=== PATIENT | female | born 1940 | race Caucasian/White ===

== ENCOUNTER → 2016-12-25 | Outpatient (CLI) | payer MEDICARE ==
[2016-12-25 14:19] VITALS: BP 134/86; PULSE 92; RESP 16; TEMP 98; BMI 52.0
--- NOTE | 2016-12-25 16:26 | P.HPBAR ---
Bariatric H&P - History & Physicial H&P Date: 12/25/16 History & Physicial: Visit/CC: band Patient initial contact: Initial weight: 167.829 kg Initial weight in pounds: 370.00 Height: 5 ft 1 in Initial BMI: 69.9 Last weight: Current weight: 124.738 kg Current weight in pounds: 275.00 Current BMI: 52.0 [place] body weight (based on NIH guidelines): 47.627 kg Excess body weight loss: 35.8% The patient is a 76 year-old F who presents for Bariatric Assessment. The patient is requesting to convert to sleeve yesterday. She has had chronic issues with dysphagia. She's had a LAP-BAND for over 10 years and has had trouble adjusting her band secondary to reflux and dysphagia. Her current BMI is 52. Past Medical History Past Medical History: Hypertension, Osteoarthritis (OA) History of Any Multi-Drug Resistant Organisms: None Reported Past Surgical History: Appendectomy, Bariatric Surgery, Cholecystectomy, Orthopedic Surgery, Tonsillectomy Additional Past Surgical History / Comment(s): 2004 gastric band bilateral hip replacement bilateral knee replacemnt Past Anesthesia/Blood Transfusion Reactions: Postoperative Nausea & Vomiting ( PONV) Past Psychological History: No Psychological Hx Reported Smoking Status: Never smoker Past Alcohol Use History: None Reported Past Drug Use History: None Reported Surgical - Exam Vital Signs Temp Pulse Resp BP 98.0 F 92 16 134/86 12/25/16 14:17 12/25/16 14:17 12/25/16 14:17 12/25/16 14:17 - General well developed, no distress - Eyes PERRL - ENT normal pinna - Neck no masses - Respiratory normal expansion - Cardiovascular Rhythm: regular - Abdomen Abdomen: soft, non tender Bariatric Assessment & Plan Plan: Morbid obesity with BMI 52. I had lengthy discussion with the patient regarding sleeve gastrectomy. I went over the risks and benefits of procedure. The patient will like to convert to sleeve this certainly due to chronic issues with GERD and dysphagia. She is unable to have her LAP-BAND adjusted further due to dysphagia. We will attempt to obtain insurance authorization. Bariatric Checklist Checklist: Plan: Checklist: EGD: 1. Hiatal hernia: 2. H. Pylori: HgbA1c: Vitamin D: Smoking: Never smoker Primary care physician referral: Psychiatry clearance: Cardiology clearance: Sleep study: Diet journal: VTE risk score: VTE risk level: Rehab needs at discharge:
== END | disposition home or self-care (01) ==
LOC: BARWHC3 13:46
PROVIDERS: ATTEND Surgery
DX: Z01.818 Encounter for other preprocedural examination (principal); E66.01 Morbid (severe) obesity due to excess calories; Z98.84 Bariatric surgery status; R13.10 Dysphagia, unspecified; K21.9 Gastro-esophageal reflux disease without esophagitis; Z68.43 Body mass index [BMI] 50.0-59.9, adult
CPT/HCPCS: 99211

== ENCOUNTER 2017-01-12 10:26 | Day surgery (SDC) | payer MEDICARE ==
[2017-01-10 11:54] VITALS: BMI 50.3
[~2017-01-12 10:26] MED LIST: LACTATED RINGERS 1,000 ML IV SCH
[2017-01-12 11:10] VITALS: TEMP 97.4
[2017-01-12] MEDS ORDERED: GLYCOPYRROLATE 0.2 MG/ML 2 ML VIAL ONE (11:41)
[2017-01-12] MEDS ORDERED: PROPOFOL 10 MG/ML 20 ML VIAL IV ONE (11:41)
[2017-01-12] MEDS ORDERED: LIDOCAINE 1% INJ 10MG/ML (20 ML MDV) ONE (11:41)
--- NOTE | 2017-01-12 11:43 | P.GSHP ---
History of Present Illness H&P Date: 01/12/17 Chief Complaint: GERD, dysphagia This a 76-year-old female who presents today for EGD. She's had issues with chronic GERD and dysphagia. Patient history of LAP-BAND surgery. - Constitutional Constitutional: Reports as per HPI Past Medical History Past Medical History: Hypertension, Osteoarthritis (OA), Sleep Apnea/CPAP/BIPAP Additional Past Medical History / Comment(s): LYMPH EDEMA BLE History of Any Multi-Drug Resistant Organisms: None Reported Past Surgical History: Appendectomy, Bariatric Surgery, Breast Surgery, Cholecystectomy, Joint Replacement, Tonsillectomy Additional Past Surgical History / Comment(s): 2004 gastric band, bilateral hip replacement, bilateral knee replacemnt, BREAST REDUCTION, CATARACTS BILAT EYES Past Anesthesia/Blood Transfusion Reactions: Postoperative Nausea & Vomiting ( PONV) Past Psychological History: No Psychological Hx Reported Smoking Status: Never smoker Past Alcohol Use History: None Reported Past Drug Use History: None Reported - Past Family History Mother Family Medical History: Cancer Medications and Allergies Home Medications Medication Instructions Recorded Confirmed Type Allopurinol [Zyloprim] 100 mg PO Q3D 12/22/16 01/12/17 History Sulindac [Clinoril] 200 mg PO BID 12/22/16 01/12/17 History Valsartan/Hydrochlorothiazide 1 tab PO DAILY 12/22/16 01/12/17 History [Valsartan-Hctz 160-25 mg Tab] Allergies Allergy/AdvReac Type Severity Reaction Status Date / Time No Known Allergies Allergy Verified 01/12/17 11:00 Surgical - Exam Vital Signs Temp Pulse Resp BP Pulse Ox 97.4 F L 77 18 128/69 97 01/12/17 11:08 01/12/17 11:08 01/12/17 11:08 01/12/17 11:08 01/12/17 11:08 - General well developed, no distress - Eyes PERRL - ENT normal pinna - Neck no masses - Respiratory normal expansion - Cardiovascular Rhythm: regular - Abdomen Abdomen: soft, non tender Assessment and Plan Plan: GERD, dysphagia. Morbid obesity BMI 51 area patient will undergo EGD today.
--- NOTE | 2017-01-12 11:52 | P.OP ---
Date of Procedure: 01/12/17 Preoperative Diagnosis: GERD Postoperative Diagnosis: Antral gastritis Mild esophagitis LAP-BAND without evidence of inflammation or erosion. Procedure(s) Performed: EGD Implants: Anesthesia: MAC Surgeon: Guy Sterling Pathology: other (Antrum, esophagus) Condition: stable Disposition: PACU Indications for Procedure: Operative Findings: Description of Procedure: The patient's placed on the endoscopy table in the lateral position. She received IV sedation. The gastroscope some placed oropharynx and passed into the esophagus and into the stomach. Scope was then placed through the pylorus. The first and second portion duodenum appeared normal. Scope was then brought back the antrum and this was mildly inflamed. A biopsies was performed. Scope was unretroflexed and the meters stomach appeared normal. The LAP-BAND was without evidence of inflammation or erosion. The proximal gastric pouch appeared slightly enlarged. The GE junction was at 40 cm. The distal esophagus appeared mildly inflamed a biopsies performed. The proximal esophagus appeared normal. Scope was withdrawn for patient.
[2017-01-12 12:00] VITALS: BP 124/66; PULSE 86; RESP 20
== END 2017-01-12 12:27 | disposition home or self-care (01) ==
LOC: ORWHC2ENDO 10:26
PROVIDERS: ATTEND Surgery
DX: K29.50 Unspecified chronic gastritis without bleeding (principal); K20.9 Esophagitis, unspecified; Z98.84 Bariatric surgery status; E66.01 Morbid (severe) obesity due to excess calories; Z68.43 Body mass index [BMI] 50.0-59.9, adult; I10 Essential (primary) hypertension; M19.90 Unspecified osteoarthritis, unspecified site; G47.33 Obstructive sleep apnea (adult) (pediatric); Z99.89 Dependence on other enabling machines and devices
CPT/HCPCS: 88305; 88342; 43239; J2001; J2704

== ENCOUNTER → 2017-01-22 | Outpatient (CLI) | payer MEDICARE ==
[2017-01-22 13:49] VITALS: BP 144/74; PULSE 85; RESP 16; TEMP 97.9; BMI 51.6
--- NOTE | 2017-01-22 13:59 | P.HPBAR ---
Bariatric H&P - History & Physicial H&P Date: 01/22/17 History & Physicial: Visit/CC: band Patient initial contact: Initial weight: 167.829 kg Initial weight in pounds: 370.00 Height: 5 ft 1 in Initial BMI: 69.9 Last weight: Current weight: 123.944 kg Current weight in pounds: 273.00 Current BMI: 51.6 [place] body weight (based on NIH guidelines): 47.627 kg Excess body weight loss: 36.6% The patient is a 76 year-old F who presents for Bariatric Assessment. Patient presents today for sleeve gastrectomy pre-consultation. Patient underwent recent EGD with is found have some mild gastritis. Patient has had chronic issues dysphagia and GERD with her LAP-BAND. She is still morbidly obese with a BMI of 52. We will over the risks and benefits of the sleeve gastrectomy again. Past Medical History Past Medical History: Hypertension, Osteoarthritis (OA), Sleep Apnea/CPAP/BIPAP History of Any Multi-Drug Resistant Organisms: None Reported Past Surgical History: Appendectomy, Bariatric Surgery, Breast Surgery, Cholecystectomy, Joint Replacement, Tonsillectomy Additional Past Surgical History / Comment(s): 2004 gastric band, bilateral hip replacement, bilateral knee replacemnt, BREAST REDUCTION, CATARACTS BILAT EYES Past Anesthesia/Blood Transfusion Reactions: Postoperative Nausea & Vomiting ( PONV) Past Psychological History: No Psychological Hx Reported Smoking Status: Never smoker Past Alcohol Use History: None Reported Past Drug Use History: None Reported Surgical - Exam Vital Signs Temp Pulse Resp BP 97.9 F 85 16 144/74 01/22/17 13:47 01/22/17 13:47 01/22/17 13:47 01/22/17 13:47 - General well developed, no distress - Eyes PERRL - ENT normal pinna - Neck no masses - Respiratory normal expansion - Cardiovascular Rhythm: regular - Abdomen Abdomen: soft, non tender Bariatric Assessment & Plan Plan: Morbid obesity with BMI 52 Dysphagia GERD. Osteoarthritis The patient will be scheduled for sleeve gastric which he receives authorization. Bariatric Checklist Checklist: Plan: Checklist: EGD: 1. Hiatal hernia: 2. H. Pylori: HgbA1c: Vitamin D: Smoking: Never smoker Primary care physician referral: Psychiatry clearance: Cardiology clearance: Sleep study: Diet journal: VTE risk score: VTE risk level: Rehab needs at discharge:
== END ==
LOC: BARWHC3 13:07
PROVIDERS: ATTEND Surgery
DX: Z48.815 Encounter for surgical aftercare following surgery on the digestive system (principal); M81.0 Age-related osteoporosis without current pathological fracture; K21.9 Gastro-esophageal reflux disease without esophagitis; Z98.84 Bariatric surgery status
CPT/HCPCS: 99211

== ENCOUNTER → 2017-02-26 | Outpatient (CLI) | payer MEDICARE ==
[2017-02-26 13:56] VITALS: BP 146/81; PULSE 86; TEMP 98.2; BMI 51.3
--- NOTE | 2017-02-26 16:22 | P.HPBAR ---
Bariatric H&P - History & Physicial H&P Date: 02/26/17 History & Physicial: Visit/CC: presurgical visit Patient initial contact: Initial weight: 167.829 kg Initial weight in pounds: 370.00 Height: 5 ft 1 in Initial BMI: 69.9 Last weight: 273 Current weight: 123.241 kg Current weight in pounds: 271.70 Current BMI: 51.3 [place] body weight (based on NIH guidelines): 47.627 kg Excess body weight loss: 37.0% The patient is a 76 year-old F who presents for Bariatric Assessment. The patient has some mild colitis of GERD. The patient is requesting convert to sleeve gastrectomy. We were unable to adjust her band due to chronic issues with GERD and dysphagia. Went over the risks and benefits of sleeve gastrectomy again today. I discussed with her the possible risks of bleeding, perforation obstruction of the gastric sleeve. Past Medical History Past Medical History: Hypertension, Osteoarthritis (OA), Sleep Apnea/CPAP/BIPAP Additional Past Medical History / Comment(s): LYMPH EDEMA BLE History of Any Multi-Drug Resistant Organisms: None Reported Past Surgical History: Appendectomy, Bariatric Surgery, Breast Surgery, Cholecystectomy, Joint Replacement, Tonsillectomy Additional Past Surgical History / Comment(s): 2004 gastric band, bilateral hip replacement, bilateral knee replacemnt, BREAST REDUCTION, CATARACTS BILAT EYES Past Anesthesia/Blood Transfusion Reactions: Postoperative Nausea & Vomiting ( PONV) Past Psychological History: No Psychological Hx Reported Smoking Status: Never smoker - Past Family History Mother Family Medical History: Cancer Surgical - Exam Vital Signs Temp Pulse BP 98.2 F 86 146/81 02/26/17 13:49 02/26/17 13:49 02/26/17 13:49 - General well developed, no distress - Eyes PERRL - ENT normal pinna - Neck no masses - Respiratory normal expansion - Cardiovascular Rhythm: regular - Abdomen Abdomen: soft, non tender Bariatric Assessment & Plan Plan: The patient has chronic dysphagia secondary to her LAP-BAND. The patient wished undergo sleeve gastrectomy in April. We will obtain insurance authorization. The reason for converting sleeve gastrectomy is inability to adjust her LAP-BAND due to chronic dysphagia. Patient will follow-up in one month. Bariatric Checklist Checklist: Plan: Checklist: EGD: 1. Hiatal hernia: 2. H. Pylori: HgbA1c: Vitamin D: Smoking: Never smoker Primary care physician referral: dr bowen Psychiatry clearance: Cardiology clearance: Sleep study: Diet journal: VTE risk score: VTE risk level: Rehab needs at discharge:
== END | disposition home or self-care (01) ==
LOC: BARWHC3 13:27
PROVIDERS: ATTEND Surgery
DX: Z48.815 Encounter for surgical aftercare following surgery on the digestive system (principal); R13.10 Dysphagia, unspecified; K21.9 Gastro-esophageal reflux disease without esophagitis; Z98.84 Bariatric surgery status; Z68.43 Body mass index [BMI] 50.0-59.9, adult; G47.30 Sleep apnea, unspecified; Z99.89 Dependence on other enabling machines and devices
CPT/HCPCS: 99211

== ENCOUNTER → 2017-04-16 | Outpatient (CLI) | payer MEDICARE ==
[2017-04-16 15:08] VITALS: BP 163/80; PULSE 77; RESP 16; TEMP 98.2; BMI 51.8
--- NOTE | 2017-04-16 15:13 | P.HPBAR ---
Bariatric H&P - History & Physicial H&P Date: 04/16/17 History & Physicial: Visit/CC: follow up band Patient initial contact: Initial weight: 167.829 kg Initial weight in pounds: 370.00 Height: 5 ft 1 in Initial BMI: 69.9 Last weight: 271 Current weight: 124.454 kg Current weight in pounds: 274.00 Current BMI: 51.8 [place] body weight (based on NIH guidelines): 47.627 kg Excess body weight loss: 36.2% The patient is a 76 year-old F who presents for Bariatric Assessment. Patient presents today for lab band follow. She's had some mild GERD. She is had a recent root canal in which did delay her sleeve gastrectomy conversion. Past Medical History Past Medical History: Hypertension, Osteoarthritis (OA), Sleep Apnea/CPAP/BIPAP Additional Past Medical History / Comment(s): LYMPH EDEMA BLE History of Any Multi-Drug Resistant Organisms: None Reported Past Surgical History: Appendectomy, Bariatric Surgery, Breast Surgery, Cholecystectomy, Joint Replacement, Tonsillectomy Additional Past Surgical History / Comment(s): 2005 gastric band, bilateral hip replacement, bilateral knee replacemnt, BREAST REDUCTION, CATARACTS BILAT EYES Past Anesthesia/Blood Transfusion Reactions: Postoperative Nausea & Vomiting ( PONV) Smoking Status: Never smoker - Past Family History Mother Family Medical History: Cancer Surgical - Exam Vital Signs Temp Pulse Resp BP 98.2 F 77 16 163/80 04/16/17 15:06 04/16/17 15:06 04/16/17 15:06 04/16/17 15:06 - General well developed, no distress - Eyes PERRL - Abdomen Abdomen: soft, non tender Bariatric Assessment & Plan Plan: Morbid obesity with BMI 52. Patient will follow-up in 4 weeks. Once her tooth issue has healed she'll be scheduled for sleeve gastrectomy. Bariatric Checklist Checklist: Plan: Checklist: EGD: 1. Hiatal hernia: 2. H. Pylori: HgbA1c: Vitamin D: Smoking: Never smoker Primary care physician referral: dr bowen Psychiatry clearance: Cardiology clearance: Sleep study: Diet journal: VTE risk score: VTE risk level: Rehab needs at discharge:
== END | disposition home or self-care (01) ==
LOC: BARWHC3 14:11
PROVIDERS: ATTEND Surgery
DX: Z48.815 Encounter for surgical aftercare following surgery on the digestive system (principal); E66.01 Morbid (severe) obesity due to excess calories; Z68.43 Body mass index [BMI] 50.0-59.9, adult; Z98.84 Bariatric surgery status
CPT/HCPCS: 99211

== ENCOUNTER → 2017-05-21 | Outpatient (CLI) | payer MEDICARE ==
[2017-05-21 14:27] VITALS: BP 144/97; PULSE 89; RESP 16; TEMP 98.2; BMI 52.0
--- NOTE | 2017-05-21 15:20 | P.HPBAR ---
Bariatric H&P - History & Physicial H&P Date: 05/21/17 History & Physicial: Visit/CC: band adj Patient initial contact: Initial weight: 167.829 kg Initial weight in pounds: 370.00 Height: 5 ft 1 in Initial BMI: 69.9 Last weight: Current weight: 124.738 kg Current weight in pounds: 275.00 Current BMI: 52.0 [place] body weight (based on NIH guidelines): 47.627 kg Excess body weight loss: 35.8% The patient is a 76 year-old F who presents for Bariatric Assessment. Patient presents today for his LAP-BAND follow-up. She is requesting a fill of her LAP- BAND. She wants to wait until July or August for her sleeve gastrectomy conversion. Past Medical History Past Medical History: Hypertension, Osteoarthritis (OA), Sleep Apnea/CPAP/BIPAP Additional Past Medical History / Comment(s): LYMPH EDEMA BLE History of Any Multi-Drug Resistant Organisms: None Reported Past Surgical History: Appendectomy, Bariatric Surgery, Breast Surgery, Cholecystectomy, Joint Replacement, Tonsillectomy Additional Past Surgical History / Comment(s): 2005 gastric band, bilateral hip replacement, bilateral knee replacemnt, BREAST REDUCTION, CATARACTS BILAT EYES Past Anesthesia/Blood Transfusion Reactions: Postoperative Nausea & Vomiting ( PONV) Past Psychological History: No Psychological Hx Reported Smoking Status: Never smoker Past Alcohol Use History: None Reported Past Drug Use History: None Reported - Past Family History Mother Family Medical History: Cancer Surgical - Exam Vital Signs Temp Pulse Resp BP 98.2 F 89 16 144/97 05/21/17 14:24 05/21/17 14:24 05/21/17 14:24 05/21/17 14:24 - General well developed, no distress - Eyes PERRL - ENT normal pinna - Neck no masses - Respiratory normal expansion - Cardiovascular Rhythm: regular - Abdomen Abdomen: soft, non tender Bariatric Assessment & Plan Plan: The patient's lap band was adjusted. She had 1 mL added to the band. She currently is 4 mL in the band. She was able to water without difficulty. Bariatric Checklist Checklist: Plan: Checklist: EGD: 1. Hiatal hernia: 2. H. Pylori: HgbA1c: Vitamin D: Smoking: Never smoker Primary care physician referral: dr bowen Psychiatry clearance: Cardiology clearance: Sleep study: Diet journal: VTE risk score: VTE risk level: Rehab needs at discharge:
== END | disposition home or self-care (01) ==
LOC: BARWHC3 14:17
PROVIDERS: ATTEND Surgery
DX: Z48.815 Encounter for surgical aftercare following surgery on the digestive system (principal); Z98.84 Bariatric surgery status
CPT/HCPCS: 99212

== ENCOUNTER → 2018-01-21 | Outpatient (CLI) | payer MEDICARE ==
[2018-01-21 16:14] VITALS: BP 115/80; PULSE 92; RESP 16; TEMP 98; BMI 48.9
--- NOTE | 2018-01-21 16:55 | P.HPBAR ---
Bariatric H&P - History & Physicial H&P Date: 01/21/18 History & Physicial: Visit/CC: band follow-up Patient initial contact: Initial weight: 167.829 kg Initial weight in pounds: 370.00 Height: 5 ft 1 in Initial BMI: 69.9 Last weight: Current weight: 117.48 kg Current weight in pounds: 259.00 Current BMI: 48.9 [place] body weight (based on NIH guidelines): 47.627 kg Excess body weight loss: 41.8% The patient is a 77 year-old F who presents for Bariatric Assessment. Patient presents today for lab band follow. She is loss another 16 pounds since her last visit. Patient has had some minimal GERD. She also has complaints of rectal bleeding. Past Medical History Past Medical History: Hypertension, Osteoarthritis (OA), Sleep Apnea/CPAP/BIPAP Additional Past Medical History / Comment(s): LYMPH EDEMA BLE History of Any Multi-Drug Resistant Organisms: None Reported Past Surgical History: Appendectomy, Bariatric Surgery, Breast Surgery, Cholecystectomy, Joint Replacement, Tonsillectomy Additional Past Surgical History / Comment(s): 2005 gastric band, bilateral hip replacement, bilateral knee replacemnt, BREAST REDUCTION, CATARACTS BILAT EYES Past Anesthesia/Blood Transfusion Reactions: Postoperative Nausea & Vomiting ( PONV) Smoking Status: Never smoker - Past Family History Mother Family Medical History: Cancer Surgical - Exam Vital Signs Temp Pulse Resp BP 98 F 92 16 115/80 01/21/18 16:12 01/21/18 16:12 01/21/18 16:12 01/21/18 16:12 - General well developed, well nourished, no distress - Abdomen Abdomen: soft, non tender Bariatric Assessment & Plan Plan: The patient's GERD is minimal O be observed. The patient will follow-up with her family doctor regarding her rectal bleeding. She'll contact me if she wishes to have a colonoscopy performed. She'll follow-up in the bandage clinic in 1 month. Bariatric Checklist Checklist: Plan: Checklist: EGD: 1. Hiatal hernia: 2. H. Pylori: HgbA1c: Vitamin D: Smoking: Never smoker Primary care physician referral: dr bowen Psychiatry clearance: Cardiology clearance: Sleep study: Diet journal: VTE risk score: VTE risk level: Rehab needs at discharge:
== END | disposition home or self-care (01) ==
LOC: BARWHC3 15:00
PROVIDERS: ATTEND Surgery
DX: Z48.815 Encounter for surgical aftercare following surgery on the digestive system (principal); K21.9 Gastro-esophageal reflux disease without esophagitis; Z98.84 Bariatric surgery status
CPT/HCPCS: 99211

== ENCOUNTER → 2018-02-21 | Day surgery (SDC) | payer MEDICARE ==
[2018-02-18 10:52] VITALS: BMI 47.3
[~2018-02-21] MED LIST changes: +LACTATED RINGERS 1,000 ML IV ONE; +LIDOCAINE 1% 20 ML VIAL (10MG/ML) FOR IV START INTRADERMA ONE; +PROPOFOL 10 MG/ML 20 ML VIAL IV ONE
[2018-02-21 08:53] VITALS: RESP 18; TEMP 98
--- NOTE | 2018-02-21 09:16 | P.GSHP ---
History of Present Illness H&P Date: 02/21/18 Chief Complaint: GI bleed This is a 77-year-old female who presents today for colonoscopy. She's had issues rectal bleeding. Past Medical History Past Medical History: Hypertension, Osteoarthritis (OA), Skin Disorder, Sleep Apnea/CPAP/BIPAP Additional Past Medical History / Comment(s): heart [place], lymphedema malathi lower extremites, diarrhea/constipation, gout, rosacea, History of Any Multi-Drug Resistant Organisms: None Reported Past Surgical History: Appendectomy, Bariatric Surgery, Breast Surgery, Cholecystectomy, Joint Replacement, Tonsillectomy Additional Past Surgical History / Comment(s): gastric lap band, bilateral hip replacement, bilateral knee replacemnt, BREAST REDUCTION, CATARACTS BILAT, panniculectomy Past Anesthesia/Blood Transfusion Reactions: Postoperative Nausea & Vomiting ( PONV) Smoking Status: Never smoker - Past Family History Mother Family Medical History: Cancer Medications and Allergies Home Medications Medication Instructions Recorded Confirmed Type Sulindac [Clinoril] 200 mg PO BID PRN 12/22/16 02/18/18 History Valsartan/Hydrochlorothiazide 1 tab PO DAILY 12/22/16 02/18/18 History [Valsartan-Hctz 160-25 mg Tab] Allopurinol [Zyloprim] 200 mg PO Q3D 02/18/18 02/18/18 History Allergies Allergy/AdvReac Type Severity Reaction Status Date / Time No Known Allergies Allergy Verified 02/18/18 10:40 Surgical - Exam Vital Signs Temp Pulse Resp BP Pulse Ox 98.0 F 73 18 151/82 97 02/21/18 08:51 02/21/18 08:51 02/21/18 08:51 02/21/18 08:51 02/21/18 08:51 - General well developed, well nourished, no distress - Eyes PERRL - ENT normal pinna - Neck no masses - Respiratory normal expansion - Cardiovascular Rhythm: regular - Abdomen Abdomen: soft, non tender Assessment and Plan Assessment: GI bleed. We'll perform colonoscopy.
--- NOTE | 2018-02-21 09:50 | P.OP ---
Date of Procedure: 02/21/18 Preoperative Diagnosis: GI bleed Postoperative Diagnosis: Internal and external hemorrhoids Diverticulosis Procedure(s) Performed: Colonoscopy Anesthesia: MAC Surgeon: Guy Sterling Pathology: none sent Condition: stable Disposition: PACU Description of Procedure: The patient's placed on the endoscopy table in the lateral position. She received IV sedation. Digital rectal exam was performed which revealed internal /external hemorrhoids. Flexible colonoscope was then placed patient anus passed with colon. The scope could not be placed into the proximal right colon secondary to tortuosity valve. At this point scope was withdrawn. The distal ascending colon, transverse colon appeared normal. The descending; was moderate diverticular changes. Scope was then brought back the rectum and this appeared normal. Scope was withdrawn for patient. No obvious source of bleeding seen. Due to nonvisualization cecum a barium enema was ordered.
[2018-02-21 10:11] VITALS: BP 116/71; PULSE 73
--- NOTE | 2018-02-21 13:34 | FL ---
EXAMINATION TYPE: FL barium enema DATE OF EXAM: 02/21/2018 COMPARISON: NONE HISTORY: Incomplete screening colonoscopy. Nonvisualization of the right hemicolon. TECHNIQUE: A single contrast barium enema study is performed. 3.34 minutes of fluoroscopy time was u tilized 76 images saved. Pt given 3500cc Polibar barium rectally. FINDINGS: Wool Buyer view of the abdomen shows overall non-obstructive bowel gas pattern. Diffuse gaseous distention of bowel relates to the recent colonoscopy earlier the same date. No evidence of any mass or polyp, obstructing or constricting lesion throughout the colon. Scattered diverticula are present within the sigmoid, descending, and transverse colon. Appendix was filled and appeared normal. The terminal ileum was refluxed and appears within normal l imits. IMPRESSION: Sigmoid, and descending, and transverse colonic diverticulosis. Otherwise unremarkable e xam with no obstructing mass.
== END | disposition home or self-care (01) ==
LOC: ORWHC2ENDO 08:20
PROVIDERS: ATTEND Surgery
DX: K57.30 Diverticulosis of large intestine without perforation or abscess without bleeding (principal); Q43.8 Other specified congenital malformations of intestine; K64.8 Other hemorrhoids; K64.4 Residual hemorrhoidal skin tags; I10 Essential (primary) hypertension; G47.33 Obstructive sleep apnea (adult) (pediatric); Z99.89 Dependence on other enabling machines and devices; M19.90 Unspecified osteoarthritis, unspecified site; R01.1 Cardiac murmur, unspecified; I89.0 Lymphedema, not elsewhere classified; M10.9 Gout, unspecified
CPT/HCPCS: 74270; 45378; J2704

== ENCOUNTER → 2018-04-15 | Outpatient (CLI) | payer MEDICARE ==
--- NOTE | 2018-04-15 15:38 | P.HPBAR ---
Bariatric H&P - History & Physicial H&P Date: 04/15/18 History & Physicial: Visit/CC: Patient initial contact: Initial weight: 167.829 kg Initial weight in pounds: Height: Initial BMI: Last weight: Current weight: Current weight in pounds: Current BMI: [place] body weight (based on NIH guidelines): Excess body weight loss: The patient is a 77 year-old F who presents for Bariatric Assessment. The patient presents today for lab band follow. She is lost prostate 4 pounds her last visit. She is unsure if she has a fill. She denies any significant dysphagia. She's had some minimal GERD. She states her hypertension is due to the fact she forgot her medications today. Past Medical History Past Medical History: Hypertension, Osteoarthritis (OA), Skin Disorder, Sleep Apnea/CPAP/BIPAP Additional Past Medical History / Comment(s): heart murmer, lymphedema malathi lower extremites, diarrhea/constipation, gout, rosacea, History of Any Multi-Drug Resistant Organisms: None Reported Past Surgical History: Appendectomy, Bariatric Surgery, Breast Surgery, Cholecystectomy, Joint Replacement, Tonsillectomy Additional Past Surgical History / Comment(s): gastric lap band, bilateral hip replacement, bilateral knee replacemnt, BREAST REDUCTION, CATARACTS BILAT, panniculectomy Past Anesthesia/Blood Transfusion Reactions: Postoperative Nausea & Vomiting ( PONV) Smoking Status: Never smoker - Past Family History Mother Family Medical History: Cancer Surgical - Exam - General well developed, no distress - Eyes PERRL - Abdomen Abdomen: soft, non tender Bariatric Assessment & Plan Plan: Status post lap band procedure. Patient is doing fairly well. Her GERD is minimal only observed. The patient will resume her hypertensive medication. She'll follow-up in 4 weeks. Bariatric Checklist Checklist: Plan: Checklist: EGD: 1. Hiatal hernia: 2. H. Pylori: HgbA1c: Vitamin D: Smoking: Never smoker Primary care physician referral: dr bowen Psychiatry clearance: Cardiology clearance: Sleep study: Diet journal: VTE risk score: VTE risk level: Rehab needs at discharge:
[2018-04-15 15:43] VITALS: BP 143/87; PULSE 90; RESP 16; TEMP 98.1; BMI 48.3
== END | disposition home or self-care (01) ==
LOC: BARWHC3 15:21
PROVIDERS: ATTEND Surgery
DX: Z09 Encounter for follow-up examination after completed treatment for conditions other than malignant neoplasm (principal); K21.9 Gastro-esophageal reflux disease without esophagitis; I10 Essential (primary) hypertension; G47.30 Sleep apnea, unspecified; Z99.89 Dependence on other enabling machines and devices; Z90.89 Acquired absence of other organs; Z98.84 Bariatric surgery status; Z90.49 Acquired absence of other specified parts of digestive tract; Z96.643 Presence of artificial hip joint, bilateral; Z96.653 Presence of artificial knee joint, bilateral; Z98.890 Other specified postprocedural states
CPT/HCPCS: 99211

== ENCOUNTER → 2018-10-21 | Outpatient (CLI) | payer MEDICARE ==
[2018-10-21 15:39] VITALS: BP 143/87; PULSE 90; RESP 16; TEMP 98.1; BMI 50.4
--- NOTE | 2018-10-21 16:06 | P.HPBAR ---
Bariatric H&P - History & Physicial H&P Date: 10/21/18 History & Physicial: Visit/CC: band fill Patient initial contact: Initial weight: 167.829 kg Initial weight in pounds: 370.00 Height: 5 ft 1 in Initial BMI: 69.9 Last weight: Current weight: 121.109 kg Current weight in pounds: 267.00 Current BMI: 50.4 [place] body weight (based on NIH guidelines): 47.627 kg Excess body weight loss: 38.8% The patient is a 78 year-old F who presents for Bariatric Assessment. Patient presents today for bariatric follow-up. She has gained some weight since her last visit. She is requesting a fill of her band. Past Medical History Past Medical History: Hypertension, Osteoarthritis (OA), Skin Disorder, Sleep Apnea/CPAP/BIPAP Additional Past Medical History / Comment(s): heart murmer, lymphedema malathi lower extremites, diarrhea/constipation, gout, rosacea, History of Any Multi-Drug Resistant Organisms: None Reported Past Surgical History: Appendectomy, Bariatric Surgery, Breast Surgery, Cholecystectomy, Joint Replacement, Tonsillectomy Additional Past Surgical History / Comment(s): gastric lap band, bilateral hip replacement, bilateral knee replacemnt, BREAST REDUCTION, CATARACTS BILAT, panniculectomy Past Anesthesia/Blood Transfusion Reactions: Postoperative Nausea & Vomiting ( PONV) Past Psychological History: No Psychological Hx Reported Smoking Status: Never smoker Past Alcohol Use History: Occasional Past Drug Use History: None Reported - Past Family History Mother Family Medical History: Cancer Surgical - Exam Vital Signs Temp Pulse Resp BP 98.1 F 90 16 143/87 10/21/18 15:35 10/21/18 15:35 10/21/18 15:35 10/21/18 15:35 - General well developed, well nourished, no distress - Eyes PERRL - ENT normal pinna - Neck no masses - Respiratory normal expansion - Cardiovascular Rhythm: regular - Abdomen Abdomen: soft, non tender Bariatric Assessment & Plan Plan: Patient LAP-BAND was adjusted. She had 0.5 mL added to her band. She currently is 4.5 mL in the band. She'll follow-up in one month. Bariatric Checklist Checklist: Plan: Checklist: EGD: 1. Hiatal hernia: 2. H. Pylori: HgbA1c: Vitamin D: Smoking: Never smoker Primary care physician referral: dr bowen Psychiatry clearance: Cardiology clearance: Sleep study: Diet journal: VTE risk score: VTE risk level: Rehab needs at discharge:
== END ==
LOC: BARWHC3 15:03
PROVIDERS: ATTEND Surgery
DX: Z48.815 Encounter for surgical aftercare following surgery on the digestive system (principal); Z98.84 Bariatric surgery status
CPT/HCPCS: 99212

== ENCOUNTER → 2019-04-14 | Outpatient (CLI) | payer MEDICARE ==
[2019-04-14 13:44] VITALS: BP 156/74; PULSE 89; RESP 16; TEMP 98.3
--- NOTE | 2019-04-14 15:51 | P.HPBAR ---
Bariatric H&P - History & Physicial H&P Date: 04/14/19 History & Physicial: Visit/CC: BAND ADJ Patient initial contact: Initial weight: 167.829 kg Initial weight in pounds: 370.00 Height: 5 ft 1 in Initial BMI: Last weight: Current weight: 119.748 kg Current weight in pounds: Current BMI: [place] body weight (based on NIH guidelines): Excess body weight loss: The patient is a 78 year-old F who presents for Bariatric Assessment. Patient presents today for lab band follow up. She's had some issues with swelling in her legs. He's had some mild GERD. Past Medical History Past Medical History: Hypertension, Osteoarthritis (OA), Skin Disorder, Sleep Apnea/CPAP/BIPAP Additional Past Medical History / Comment(s): heart murmer, lymphedema malathi lower extremites, diarrhea/constipation, gout, rosacea, History of Any Multi-Drug Resistant Organisms: None Reported Past Surgical History: Appendectomy, Bariatric Surgery, Breast Surgery, Cholecystectomy, Joint Replacement, Tonsillectomy Additional Past Surgical History / Comment(s): gastric lap band, bilateral hip replacement, bilateral knee replacemnt, BREAST REDUCTION, CATARACTS BILAT, p anniculectomy Past Anesthesia/Blood Transfusion Reactions: Postoperative Nausea & Vomiting (PONV) Smoking Status: Never smoker - Past Family History Mother Family Medical History: Cancer Surgical - Exam Vital Signs Temp Pulse Resp BP 98.3 F 89 16 156/74 04/14/19 13:37 04/14/19 13:37 04/14/19 13:37 04/14/19 13:37 - General well developed, well nourished, no distress - Abdomen Abdomen: soft, non tender Bariatric Assessment & Plan Plan: Morbid obesity. Patient has had some weight loss. Her GERD is minimal and will be observed. The patient has had edema of her lower extremities. She is undergoing Doppler studies today. She was given the prescription of Lasix 10 mg by mouth daily for 10 days. Bariatric Checklist Checklist: Plan: Checklist: EGD: 1. Hiatal hernia: 2. H. Pylori: HgbA1c: Vitamin D: Smoking: Never smoker Primary care physician referral: dr bowen Psychiatry clearance: Cardiology clearance: Sleep study: Diet journal: VTE risk score: VTE risk level: Rehab needs at discharge:
== END ==
LOC: BARWHC3 13:06
PROVIDERS: ATTEND Surgery
DX: Z48.815 Encounter for surgical aftercare following surgery on the digestive system (principal); E66.01 Morbid (severe) obesity due to excess calories; M79.89 Other specified soft tissue disorders; K21.9 Gastro-esophageal reflux disease without esophagitis; Z98.84 Bariatric surgery status; Z90.49 Acquired absence of other specified parts of digestive tract; Z79.899 Other long term (current) drug therapy
CPT/HCPCS: 99211

== ENCOUNTER → 2019-05-14 | Outpatient (CLI) | payer MEDICARE ==
--- NOTE | 2019-05-14 13:36 | CT ---
EXAMINATION TYPE: CT chest wo con DATE OF EXAM: 05/14/2019 COMPARISON: NONE HISTORY: SOB, cough with green sputum. CT DLP: 748 mGycm. Automated Exposure Control for Dose Reduction was Utilized. TECHNIQUE: CT scan of the thorax is performed without IV contrast. FINDINGS: LUNGS: Mild Bibasilar linear scarring and/or atelectasis is present. No suspicious focal infiltrate o r groundglass opacity. Slightly elevated left hemidiaphragm. No pleural effusion or pneumothorax. MEDIASTINUM: Lack of IV contrast is noted to limit evaluation for mediastinal and especially hilar a denopathy. There are no definitive greater than 1 cm hilar or mediastinal lymph nodes. No cardiomeg fartun or pericardial effusion is seen. Prominent central pulmonary arteries, CT findings suggesting und erlying pulmonary hypertension. OTHER: Exaggerated thoracic kyphosis with multilevel spurring and disc space narrowing. Multilevel va cuum disc phenomenon. Lap band device position and angle satisfactory just below diaphragm. Cholecyst ectomy clips are noted. IMPRESSION: No suspicious acute pulmonary process.
== END | disposition home or self-care (01) ==
LOC: RADCTMAIN 12:52
PROVIDERS: ATTEND Family Medicine
DX: R06.02 Shortness of breath (principal)
CPT/HCPCS: 71250

== ENCOUNTER → 2021-10-24 | Outpatient (CLI) | payer MEDICARE ==
[2021-10-24 15:19] VITALS: BP 121/78; PULSE 82; TEMP 98.2; BMI 48.9
--- NOTE | 2021-10-24 15:42 | P.HPBAR ---
Bariatric H&P - History & Physicial H&P Date: 10/24/21 History & Physicial: Visit/CC: lap band follow up Patient initial contact: Initial weight: 167.829 kg Initial weight in pounds: 370.00 Height: 5 ft 1 in Initial BMI: 69.9 Last weight: Current weight: 117.48 kg Current weight in pounds: 259.00 Current BMI: 48.9 [place] body weight (based on NIH guidelines): 47.627 kg Excess body weight loss: 41.8% The patient is a 81 year-old F who presents for Bariatric Assessment. Patient resents today for bariatric follow-up. She's not been seen several years stool coated. She lives in [place]. Her weight has been relatively stable. He has mild GERD. Past Medical History Past Medical History: Hypertension, Osteoarthritis (OA), Skin Disorder, Sleep Apnea/CPAP/BIPAP Additional Past Medical History / Comment(s): heart murmer, lymphedema malathi lower extremites, diarrhea/constipation, gout, rosacea, History of Any Multi-Drug Resistant Organisms: None Reported Past Surgical History: Appendectomy, Bariatric Surgery, Breast Surgery, Cholecystectomy, Joint Replacement, Tonsillectomy Additional Past Surgical History / Comment(s): gastric lap band, bilateral hip replacement, bilateral knee replacemnt, BREAST REDUCTION, CATARACTS BILAT, panniculectomy Past Anesthesia/Blood Transfusion Reactions: Postoperative Nausea & Vomiting (PONV) Smoking Status: Never smoker - Past Family History Mother Family Medical History: Cancer Surgical - Exam Vital Signs Temp Pulse BP 98.2 F 82 121/78 10/24/21 15:16 10/24/21 15:16 10/24/21 15:16 - General well developed, well nourished, no distress - Eyes PERRL - ENT normal pinna - Neck no masses - Respiratory normal expansion - Cardiovascular Rhythm: regular - Abdomen Abdomen: soft, non tender Bariatric Assessment & Plan Plan: Patient's weight loss has plateaued. Her GERD is minimal will be observed. She'll follow-up as needed. Bariatric Checklist Checklist: Plan: Checklist: EGD: 1. Hiatal hernia: 2. H. Pylori: HgbA1c: Vitamin D: Smoking: Never smoker Primary care physician referral: dr bowen Psychiatry clearance: Cardiology clearance: Sleep study: Diet journal: VTE risk score: VTE risk level: Rehab needs at discharge:
== END | disposition home or self-care (01) ==
LOC: BARWHC3 13:59
PROVIDERS: ATTEND Surgery
DX: E66.01 Morbid (severe) obesity due to excess calories (principal); Z68.42 Body mass index [BMI] 45.0-49.9, adult
CPT/HCPCS: 99211